=== PATIENT | male | born 1965 | race Asian ===

== ENCOUNTER 2020-03-30 11:10 | Emergency (ER) | payer OTHER ==
[~2020-03-30] VITALS: Ht 167.6 cm; Wt 79.4 kg
[2020-03-30 12:16] VITALS: BP 144/87
[2020-03-30] MEDS ORDERED: KETOROLAC TROMETH 60MG/2ML VIAL IM ONE (13:45)
[2020-03-30] MEDS ORDERED: methylPREDNISolone SOD SUCC 125 MG/2 ML VL IM ONE (13:45)
[2020-03-30] MEDS ORDERED: METHOCARBAMOL 500 MG TAB PO ONE (13:45)
== END 2020-03-30 14:12 | disposition home or self-care (01) ==
LOC: ER 11:10
DX: M54.16 Radiculopathy, lumbar region (principal); I10 Essential (primary) hypertension; F41.9 Anxiety disorder, unspecified
CPT/HCPCS: 96372; 99284; J1885; J2930

== ENCOUNTER 2024-07-23 08:37 | Inpatient (IN) | payer OTHER ==
[~2024-07-23] VITALS: Ht 167.6 cm; Wt 101.3 kg
[~2024-07-23 08:37] MED LIST: BACL10TA PO; CHOL20007 PO; IBUP100S11 PO; LISI20TA56 PO; MELO7.5T7 PO
[2024-07-23] MEDS ORDERED: MIDAZOLAM HCL 2MG/2ML 2ml VIAL (1mg/ml) ONE (09:12)
[2024-07-23] MEDS ORDERED: fentaNYL CITRATE 100 MCG/2 ML VL ONE (09:12)
[2024-07-23] MEDS ORDERED: PROPOFOL 10 MG/ML 20 ML IV ONE ×2 (09:13→11:50)
[2024-07-23] MEDS ORDERED: ePHEDrine SULFATE 50 MG/ML AMP ONE (10:19)
[2024-07-23] MEDS ORDERED: PHENYLEPHRINE HCL 10 MG/ML VL ONE (10:23)
--- NOTE | 2024-07-23 12:09 | DVHOP2 ---
Operative Report - 2 Report Details Date: 07/23/24 Preop Diagnosis: Right knee degenerative arthritis Postop Diagnosis: Same Surgeon: Kwadwo Sanders MD Candle Molder Hand: Niya GUERRERO Anesthesiologist: Traci Anesthesia: Regional Drains: Jose closed wound suction Implant: DonJoy size seven femur PS, size seven tibial base plate, size 10 polyethylene, 29 patella Consent: The patient was informed of the risks and benefits of the procedure. These include but are not limited to complications of anesthesia, postoperative infection, incomplete relief of symptoms, recurrence of symptoms, damage to blood vessels, nerves and tendons, deep venous thrombosis, pulmonary embolism and possible need for repeat surgery in the future. Complications: None Estimated Blood Loss: 75 cc Fluids: See anesthesia record Findings: Varus deformity fixed, flexion contracture 10, extensive osteophytes, extensive complete loss of cartilage with eburnated bone all three compartments, chronic ACL tear, fat pad scarring Indications for Surgery: Right knee degenerative arthritis with severe pain and functional impairment despite nonoperative management Name of Procedure Performed Right total knee arthroplasty Procedure Details Procedure Details: The patient was brought to the operating room and placed on the table in the supine position after being given spinal anesthetic with adequate analgesia obtained. Surgical timeout was performed verifying patient, laterality and procedure Preop patient received IV cefepime, IV Ancef and IV tranexamic acid. Tourniquet was applied to the lower extremity. Extremity was elevated, exsanguinated Esmarch, and tourniquet inflated. Lower extremity was prepped and draped in sterile fashion. Midline incision was made followed by medial arthrotomy. I exposed the anterior medial and lateral tibial plateau and the anterior distal femur. Bovie and aqua mantis were used for hemostasis. I excised the anterior meniscal tissue with Bovie. I excised a portion of the fat pad with Bovie. The patella was everted and the knee flexed. I drilled the distal femur and suctioned the hole to reduce the risk of fat emboli. I inserted intramedullary guide with 5 degree valgus setting. I pinned the distal femoral cutting block anteriorly. Intramedullary clement was removed. Distal femoral cut was made and the block removed. I brought my attention to the tibia setting up the external cutting jig for the tibia paying attention to slope, rotation and varus valgus alignment. I set the depth and pinned the block. I used the external alignment clement to aid in checking alignment. Bone cut was made and bone removed releasing soft tissue attachments with Bovie. Cutting block removed. I then checked the extension gap which was deemed adequate and I removed the femur and tibia pins. I flexed the knee and applied the femoral sizing guide to the femur. I checked the size and external rotation using Whitesides line and checking the epicondylar axis. I drilled the holes then removed the sizing guide and pin. I then tapped on the 4 in 1 cutting block and checked with the mohsen wing anteriorly to make sure that I would not notch then pinned the block. Cuts were made and the block and pins were removed. Bone was removed with curved osteotome. I used a rongeur to remove any remaining osteophytes at the femur and tibia. I then used a lamina jumpbasting machine operator to open up the back alternating between the medial and lateral side. Any remaining meniscal tissue was excised with scalpel. I used curved osteotome, curette and rongeur to remove any posterior osteophytes. I prophylactically coagulated with aqua mantis. I applied the template for the box cut and pinned it. I then used saw to remove bone in the notch. Template and pins removed. I then tapped on the femoral trial. I then brought my attention back to the tibia sizing it. I used the external alignment clement to make sure that rotation and alignment were good. I made a Bovie jayla at the tibial tray jayla identifying rotation for later use. I tried various poly trials. [I then brought my attention to the patella. I sequentially dissected soft tissue with Bovie. I checked the thickness with caliper. I set the appropriate depth of cut on the cutting guide. I attached the cutting guide made my cut. I then sized the patella and made my drill holes. I then placed the patella trial with appropriate depth based on overall precut thickness. ] The patella tracked nicely without thumb pressure. I removed the trials. I pinned the tibia tray and used the reamer and keel punch. Tray was then removed. The implants were brought into the field while bone preparation was started. I used both normal saline irrigation and the CarboJet to prepare the bone. Once cement was ready I applied cement to the tibial implant and tibial bone tapped it on and removed excess cement in usual fashion. In similar fashion I tapped on the femoral implant. I inserted the trial polyethylene and brought the knee into 30 degrees flexion. [I then applied the patella implant in similar fashion holding pressure with the pressurization device.] I irrigated with xperience irrigant. Once cement cured, I checked stability and range of motion as well as patella tracking and made final decision as to which poly implant to use. tourniquet was released and hemostasis maintained with aqua mantis. I inserted the polyethylene and again checked stability. I used 2 grams of vancomycin half of which was placed deep and half superficial. I repaired the extensor mechanism with the knee in flexion with #1 Ethibond interrupted [id number]. Deep subcutaneous tissue was closed with 0 Vicryl. Superficial subcutaneous tissue was closed with 2-0 vicryl interrupted. Skin was closed with zonia. I then applied the [jose closed wound suction]. Patient tolerated the procedure well and was brought to recovery room in stable condition. Condition Stable Disposition Still a Patient KWADWO SANDERS MD Jul 23, 2024 12:09
[2024-07-23 12:20] VITALS: PULSE 79; RESP 15; O2SAT 98
[2024-07-23 12:27] VITALS: PULSE 73; RESP 16; O2SAT 100
[2024-07-23] MEDS ORDERED: ONDANSETRON HCL 4 MG/2 ML VIAL IV ONE (12:30)
[2024-07-23] MEDS ORDERED: oxyCODONE HCL 5MG TAB PO PRN (12:30)
[2024-07-23] MEDS ORDERED: ACETAMINOPHEN 325 MG TAB PO PRN (12:30)
[2024-07-23] MEDS ORDERED: MEPERIDINE HCL (25 MG/ML) 1ML VIAL IV PRN (12:30)
--- NOTE | 2024-07-23 12:50 | DVH ---
EXAM: XY R KNEE 2V XRAY CLINICAL INDICATION: postop TECHNIQUE: XY R KNEE 2V XRAY Comparison: None FINDINGS/IMPRESSION: Right total knee arthroplasty. Surgical skin zonia are present.
[2024-07-23] MEDS: ROPIVACAINE 0.5% (5MG/ML) 20ML AMPULE IJ ONE (13:22)
[2024-07-23] MEDS: VANCOMYCIN HCL 1000 MG VL ONE (13:22)
[2024-07-23] MEDS: ceFAZolin 2 GM/D5W100ml 100 ML IV ONE (13:22)
[2024-07-23] MEDS: TRANEXAMIC ACID 20 ML ONE (13:22)
[2024-07-23] MEDS: D5W/LACTATED RINGERS 1,000 ML IV SCH (13:46)
[2024-07-23] MEDS ORDERED: ceFAZolin 2 GM/D5W50ml 50 ML IV SCH (14:00)
[2024-07-23] MEDS ORDERED: ACETAMINOPHEN IV 100 ML IV ONE (16:01)
[2024-07-23] MEDS: MEPERIDINE HCL (25 MG/ML) 1ML VIAL ONE (16:05)
[2024-07-23] MEDS: ACETAMINOPHEN IV 1000 MG/100ML (10MG/ML) IV PRN (16:07)
[2024-07-23] MEDS ORDERED: HYDROmorphone HCL 2 MG/ML VL/or syr ONE (17:02)
[2024-07-23] MEDS: HYDROmorphone HCL 2 MG/ML VL/or syr IV PRN (17:05)
[2024-07-23 17:30] VITALS: BP 131/87; PULSE 90; TEMP 98.6; O2SAT 96
[2024-07-23] MEDS ORDERED: PNEUMOCOCCAL VACC POLYS 25 MCG/0.5 ML VIAL SUBCUT SCH (18:15)
[2024-07-23] MEDS: ACETAMINOPHEN 325 MG TAB PO SCH (18:45)
[2024-07-23] MEDS: KETOROLAC TROMETH 30 MG/ML 1ML VIAL IV SCH (18:46)
[2024-07-23] MEDS: ceFAZolin 2 GM/D5W50ml 50 ML IV SCH (18:46)
[2024-07-23 20:00] VITALS: PULSE 82; RESP 18; O2SAT 98
[2024-07-23 21:00] VITALS: BP 127/76; PULSE 78; RESP 18; TEMP 98.5; O2SAT 96
[2024-07-23] MEDS: PREGABALIN 25 MG CAP PO SCH (22:38)
[2024-07-24 00:50] VITALS: BP 148/85; PULSE 82; RESP 20; TEMP 98.8; O2SAT 98
[2024-07-24] MEDS: oxyCODONE HCL 5MG TAB PO PRN (01:37)
[2024-07-24 06:17] LABS: Basophils # (auto) 0 10 ^3/uL (0-0.2); Basophils % (auto) 0.3 % (0.0-2.0); Eosinophils # (auto) 0.1 10 ^3/uL (0-0.8); Eosinophils % (auto) 1.1 % (0.0-7.0); Hematocrit 42.3 % (41.0-53.0); Lymphocytes # (auto) 1.4 10 ^3/uL (0.4-5.4); Lymphocytes % (auto) 15.3 % (10.0-50.0); Mean Corpuscular Hemoglobin 28.2 pg (28.0-32.0); Mean Corpuscular Hgb Conc. 33.1 g/dL (32.0-36.0); Mean Corpuscular Volume 85.2 fL (80.0-100.0); Monocytes # (auto) 1.4 10 ^3/uL (0-1.3); Neutrophils # (auto) 6.4 10 ^3/uL (1.6-8.6); Neutrophils % (auto) 68.3 % (37.0-80.0); Nucleated Red Blood Cells % 0.1 %; Platelet Count (auto) 199 10^3/uL (140-450); Red Blood Cells 4.96 10^6/uL (4.5-5.90); Red Cell Distribution Width 15.7 % (11.8-14.3); White Blood Cell 9.3 10^3/uL (4.4-10.8)
[2024-07-24 06:28] LABS: Chloride 102 mmol/L (98-107); Potassium 4.1 mmol/L (3.5-5.1)
[2024-07-24 06:29] LABS: Anion Gap 5 (5-15); Calcium 9.5 mg/dL (8.7-10.4); Carbon Dioxide 28 mmol/L (20-31)
[2024-07-24 06:34] LABS: BUN/Creatinine Ratio 9.3 (10.0-20.0); Blood Urea Nitrogen 9 mg/dL (9-23)
[2024-07-24 06:35] LABS: Glucose 132 mg/dL (74-106); Sodium 135 mmol/L (136-145)
[2024-07-24 08:48] VITALS: BP 147/92; PULSE 82; RESP 18; TEMP 98; O2SAT 97
[2024-07-24] MEDS: ASPirin 81 mg TAB PO SCH (08:59)
[2024-07-24] MEDS: LISINOPRIL 20 MG TAB PO SCH (09:00)
[2024-07-24 12:50] VITALS: BP 140/85; PULSE 99; RESP 16; TEMP 98.8; O2SAT 94
[2024-07-24] MEDS: PNEUMOCOCCAL VACC POLYS 25 MCG/0.5 ML VIAL IM ONE (12:56)
--- NOTE | 2024-07-24 13:37 | DVHDS2 ---
Discharge Summary Date of Admission Jul 23, 2024 at 12:20 Date of Discharge: Jul 24, 2024 Labs/Diagnostic Data: Laboratory Results Test 07/24/24 05:08 White Blood Count 9.3 10^3/uL (4.4-10.8) Red Blood Count 4.96 10^6/uL (4.5-5.90) Hemoglobin 14.0 g/dL (13.5-17.5) Hematocrit 42.3 % (41.0-53.0) Mean Corpuscular Volume 85.2 fL (80.0-100.0) Mean Corpuscular Hemoglobin 28.2 pg (28.0-32.0) Mean Corpuscular Hemoglobin Concent 33.1 g/dL (32.0-36.0) Red Cell Distribution Width 15.7 % (11.8-14.3) Platelet Count 199 10^3/uL (140-450) Mean Platelet Volume 8.4 fL (6.9-10.8) Neutrophils (%) (Auto) 68.3 % (37.0-80.0) Lymphocytes (%) (Auto) 15.3 % (10.0-50.0) Monocytes (%) (Auto) 15.0 % (0.0-12.0) Eosinophils (%) (Auto) 1.1 % (0.0-7.0) Basophils (%) (Auto) 0.3 % (0.0-2.0) Neutrophils # (Auto) 6.4 10 ^3/uL (1.6-8.6) Lymphocytes # (Auto) 1.4 10 ^3/uL (0.4-5.4) Monocytes # (Auto) 1.4 10 ^3/uL (0-1.3) Eosinophils # (Auto) 0.1 10 ^3/uL (0-0.8) Basophils # (Auto) 0 10 ^3/uL (0-0.2) Nucleated Red Blood Cells 0.1 % Sodium Level 135 mmol/L (136-145) Potassium Level 4.1 mmol/L (3.5-5.1) Chloride Level 102 mmol/L (98-107) Carbon Dioxide Level 28 mmol/L (20-31) Anion Gap 5 (5-15) Blood Urea Nitrogen 9 mg/dL (9-23) Creatinine 0.97 mg/dL (0.700-1.30) Glomerular Filtration Rate Calc 91 mL/min (>90) BUN/Creatinine Ratio 9.3 (10.0-20.0) Serum Glucose 132 mg/dL (74-106) Calcium Level 9.5 mg/dL (8.7-10.4) Other Laboratory Tests 07/24/24 05:08 Brief Hx & Hospital Course: Patient was brought to the hospital yesterday to undergo a right total knee arthroplasty, he tolerated the procedure well without complications and was kept overnight for postoperative observation. He has remained medically stable and denied any overnight events and reports that his pain has improved significantly this morning after being started on his pain medication. Patient reports that he was able to get up and walk with the help of physical therapy and his walker and was able to get down the alanis to the nurse's station and back to his bed with his pain being manageable. Patient is otherwise feeling well and would like to go home. Condition at Discharge: Stable Final Diagnosis/Problems List Same Discharge Disposition: Home Discharge Instruct/Medications Diet: Regular Activity: See Comment Activity comment: PATIENT ADVISED TO REMAIN WEIGHT BEARING TOLERATED WITH THE ASSISTANCE OF A WALKER. Follow Up/Referral: I instructed the patient to follow up with our office in 10-14 days for his 1st postoperative evaluation Medications: Rx sent via our outpatient EMR system Discharge Statement: "Patient was advised to return to the ER or call 911 if any headaches, dizziness, shortness of breath, chest pain, abdominal pain, bleeding, fevers, or worsening of medical condition. Patient was counseled about treatment plan, medications, possible side effects, patientverbalized understanding. All questions were answered to the best of my ability. This discharge took greater then 30 minutes in planning, reviewing documentation, counseling the patient, and discussing with other team members." ASSESSMENT ASSESSMENT Assessment Same VANESA PORRAS Jul 24, 2024 13:37
--- NOTE | 2024-07-24 13:38 | DVHPN2 ---
Progress Note - Dictate Date Seen: Jul 24, 2024 Medical Necessity Reason Pt with a Central, PICC or Fol: No Subjective Patient was lying comfortably in bed during my evaluation reports some postoperative knee pain that is being well managed with the help of pain medication. Patient reports that he was able to get up and walk with the help of physical therapy and his walker this morning and was able to get down the alanis to the nurse's station and back to his bed. Patient is otherwise feeling well denying any other complaints or concerns during my evaluation and would like to go home. vital signs Vital Sign Date Time Temp Pulse Resp B/P (MAP) Pulse Ox O2 Delivery O2 Flow Rate FiO2 07/24/24 12:50 98.8 99 16 140/85 (103) 94 98.8 07/24/24 07:30 Room Air* 0 21 Total Intake and Output 07/23/24 07/23/24 07/24/24 15:00 23:00 07:00 Intake Total 100 ml 225.0 ml 1550 ml Output Total 850 ml 1000 ml Balance 100 ml -625.0 ml 550 ml medications Current Medications Medications Dose Ordered Sig/Sandra Route Start Time Stop Time Status Last Admin Dose Admin Pneumococcal Polyvalent Vaccine 1 mcg ONCE SUBCUT 07/23/24 18:15 Cancel objective A&O x4 in no acute distress Knee range of motion grossly limited with pain on movement Janell dressing clean, dry, intact, and maintaining suction No distal edema or calf tenderness to palpation Neurovascularly intact with cap refill less than 2 seconds laboratory and microbiology Laboratory Tests 07/24/24 05:08 Test 07/24/24 05:08 Range/Units Serum Glucose 132 H 74-106 mg/dL Assessment/Plan Patient to be discharged home and advised to remain weight-bearing as tolerated with the assistance of a walker and to maintain his dressings clean, dry, intact, and maintaining suction to call our office if he has any questions or concerns. I also instructed the patient to follow up with our office in 10-14 days for his 1st postoperative evaluation. Rx sent via our outpatient EMR system. He understood and agreed. Plan discussed with: Patient VANESA PORRAS Jul 24, 2024 13:38
== END 2024-07-24 13:00 | disposition home or self-care (01) | DRG 470 ==
LOC: SUR 08:37 → OVERFLOW 12:20 → WEST WING 17:39
PROVIDERS: ADMIT Orthopaedic Surgery; ATTEND Orthopaedic Surgery
PROC: 0SRC069 Replacement of Right Knee Joint with Oxidized Zirconium on Polyethylene Synthetic Substitute, Cemented, Open Approach (ICD-10-PCS; principal; 2024-07-23 09:51)
DX: M17.11 Unilateral primary osteoarthritis, right knee (principal); M21.161 Varus deformity, not elsewhere classified, right knee; S83.511A Sprain of anterior cruciate ligament of right knee, initial encounter; Z79.899 Other long term (current) drug therapy; X58.XXXA Exposure to other specified factors, initial encounter; Y93.89 Activity, other specified; Y92.89 Other specified places as the place of occurrence of the external cause; Y99.8 Other external cause status
CPT/HCPCS: 36415; 73560; 80048; 85025; 86850; 86900; 86901; 97163; G0378; J0131; J1885; J2250; J2704